=== PATIENT | male | born 2000 | race Caucasian/White ===

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

== ENCOUNTER 2021-11-15 00:56 | Emergency (ER) | payer OTHER ==
[2021-11-15 01:11] VITALS: BP 103/71; PULSE 65; TEMP 98.1; BMI 28.1
[2021-11-15] MEDS ORDERED: KETOROLAC TROMETHAMINE 30 MG/1 ML VIAL IM ONE (01:56)
[2021-11-15] MEDS ORDERED: KETOROLAC TROMETHAMINE 30 MG/1 ML VIAL ONE (01:59)
== END 2021-11-15 02:45 | disposition home or self-care (01) ==
LOC: JER 00:56
PROC: 3E0233Z Introduction of Anti-inflammatory into Muscle, Percutaneous Approach (ICD-10-PCS; principal; 2021-11-15)
DX: R07.9 Chest pain, unspecified (principal)
CPT/HCPCS: 71046-TC-FY; 93005; 93010; 99284-25